=== PATIENT | female | born 1935 | race Caucasian/White ===

== ENCOUNTER 2020-12-28 11:47 | Inpatient (IN) | payer MEDICARE ==
[~2020-12-28] VITALS: Ht 152.4 cm; Wt 72.0 kg
[2020-12-28 12:50] LABS: BASO % 1 % (0-3); EOS % 0 % (0-3); HEMATOCRIT 35.9 % (36.0-47.0); HEMOGLOBIN 11.8 g/dL (12.0-15.5); LYMPH # 0.9 x10^3/uL (1.0-4.8); LYMPH % 14 % (24-48); MEAN CORPUSCULAR HEMOGLOBIN 31 pg (25-35); MEAN CORPUSCULAR HGB CONC 33 g/dL (31-37); MEAN CORPUSCULAR VOLUME 92 fL (79-100); MONO # 0.5 x10^3/uL (0.0-1.1); MONO % 7 % (0-9); NEUT # 4.9 x10^3uL (1.8-7.7); NEUT % 78 % (31-73); PLATELET COUNT 236 x10^3/uL (140-400); RED BLOOD COUNT 3.89 x10^6/uL (3.50-5.40); RED CELL DISTRIBUTION WIDTH 13.4 % (11.5-14.5); WHITE BLOOD COUNT 6.3 x10^3/uL (4.0-11.0)
[2020-12-28 13:00] LABS: ANION GAP 10 (6-14); BLOOD UREA NITROGEN 30 mg/dL (7-20); BUN/CREATININE RATIO 25 (6-20); CALCIUM 9.2 mg/dL (8.5-10.1); CARBON DIOXIDE 25 mmol/L (21-32); CHLORIDE 107 mmol/L (98-107); CREATININE 1.2 mg/dL (0.6-1.0); GFR 42.8; GLUCOSE 175 mg/dL (70-99); POTASSIUM 4.6 mmol/L (3.5-5.1); SODIUM 142 mmol/L (136-145)
[2020-12-28 13:01] LABS: SALIC < 2.8 mg/dL (2.8-20.0)
[2020-12-28 13:02] LABS: ACETAMIN < 2.0 mcg/mL (10-30)
--- NOTE | 2020-12-28 13:04 | PHYS DOC ---
Past History Past Medical History: Anxiety, Arthritis, CHF, Depression, Diabetes, Hypothyroid Additional Past Medical Histor: nerve issues in legs adn lefet arm, TIA, flaccid hemiplegia of left side, Additional Past Surgical Histo: Colostomy Smoking: Non-smoker Alcohol Use: None Drug Use: None General Adult EDM: Chief Complaint: MEDICAL CLEARANCE HPI: HPI: Patient is a 85 year old female who presents for medical clearance prior to admission to the [facility] unit. The patient reports having a "mental breakdown" recently. Patient reports losing her recently and that her family has abandoned her. She feels lost, scared, and hopeless. Reports SI. Patient denies any discomfort or pain. Denies any other significant complaints at this time. Review of Systems: Review of Systems: Constitutional: Denies fever or chills Eyes: Denies redness or eye pain HENT: Denies nasal congestion or sore throat Respiratory: Denies cough or shortness of breath Cardiovascular: Denies chest pain or palpitations GI: Denies abdominal pain, nausea, or vomiting : Denies dysuria or hematuria Musculoskeletal: Denies back pain or joint pain Integument: Denies rash or skin lesions Neurologic: Denies headache, focal weakness or sensory changes Psych: Reports depressed mood and anxiety Complete systems were reviewed and found to be within normal limits, except as documented in this note. Allergies: Allergies: Allergies Coded Allergies Type Severity Reaction Last Updated Verified Penicillins Allergy Unknown 12/28/20 Yes Sulfa (Sulfonamide Antibiotics) Allergy Unknown 12/28/20 Yes zinc Allergy Unknown 12/28/20 Yes Physical Exam: PE: Constitutional: Well developed, well nourished, no acute distress, non-toxic appearance HENT: Normocephalic, atraumatic Eyes: PERRL, EOMI, conjunctiva normal, no discharge Neck: Normal range of motion, no tenderness, supple Lungs & Thorax: No respiratory distress, equal chest rise and fall Abdomen: Soft, no tenderness Skin: Warm, dry, no erythema, no rash Back: No tenderness, no CVA tenderness Extremities: No tenderness, ROM intact, no edema Neurologic: Alert and oriented X 3, normal motor function, normal sensory function, no focal deficits noted Psychologic: Affect anxious, judgment abnormal Current Patient Data: Labs: Laboratory Tests Test 12/28/20 12:29 White Blood Count 6.3 x10^3/uL (4.0-11.0) Red Blood Count 3.89 x10^6/uL (3.50-5.40) Hemoglobin 11.8 g/dL (12.0-15.5) L Hematocrit 35.9 % (36.0-47.0) L Mean Corpuscular Volume 92 fL (79-100) Mean Corpuscular Hemoglobin 31 pg (25-35) Mean Corpuscular Hemoglobin Concent 33 g/dL (31-37) Red Cell Distribution Width 13.4 % (11.5-14.5) Platelet Count 236 x10^3/uL (140-400) Neutrophils (%) (Auto) 78 % (31-73) H Lymphocytes (%) (Auto) 14 % (24-48) L Monocytes (%) (Auto) 7 % (0-9) Eosinophils (%) (Auto) 0 % (0-3) Basophils (%) (Auto) 1 % (0-3) Neutrophils # (Auto) 4.9 x10^3uL (1.8-7.7) Lymphocytes # (Auto) 0.9 x10^3/uL (1.0-4.8) L Monocytes # (Auto) 0.5 x10^3/uL (0.0-1.1) Eosinophils # (Auto) 0.0 x10^3/uL (0.0-0.7) Basophils # (Auto) 0.0 x10^3/uL (0.0-0.2) Vital Signs: Vital Signs Date Time Temp Pulse Resp B/P (MAP) Pulse Ox O2 Delivery O2 Flow Rate FiO2 12/28/20 12:01 98.4 77 16 143/77 97 Room Air EKG: EK12/28/20 @ 1341 sinus rhythm, 74 bpm, QRS 82 ms, TX 230 ms, QT/QTc 366/411 ms, no evidence of ischemia or ST changes, Radiology/Procedures: Radiology/Procedures: [] Heart Score: C/O Chest Pain: N/A Course & Med Decision Making: Course & Med Decision Making Pertinent Labs and Imaging studies reviewed. (See chart for details) Patient is an 85 year old female who presented for medical clearance prior to admission to the elderly behavioral unit. She reports depressed mood and SI. EKG normal. UA showed evidence of UTI. Dragon Disclaimer: Dragon Disclaimer: This electronic medical record was generated, in whole or in part, using a voice recognition dictation system. Departure Departure: Impression: Primary Impression: Medical clearance for psychiatric admission Additional Impression: Urinary tract infection Qualified Codes: N30.00 - Acute cystitis without hematuria Disposition: [address] [place] [address] ([facility]) Condition: STABLE Referrals: PCP,NO (PCP) Patient Instructions: Medical Screening Exam, Urinary Tract Infection, [id number] Scripts Cephalexin (CEPHALEXIN) 500 Mg Capsule 1 CAP PO TID for UTI for 7 Days, #21 CAP Prov: FAY ALFRED DO 12/28/20 FAY ALFRED DO Dec 28, 2020 13:04
[2020-12-28 13:17] LABS: ALBUMIN 3.4 g/dL (3.4-5.0); ALK PHOS 133 U/L (46-116); ALT (SGPT) 21 U/L (14-59); AST (SGOT) 15 U/L (15-37); TOTAL BILIRUBIN 0.2 mg/dL (0.2-1.0); TOTAL PROTEIN 6.9 g/dL (6.4-8.2)
[2020-12-28 13:52] LABS: BILIRUBIN,URINE NEG (NEG); CLARITY,URINE HAZY; COLOR,URINE YELLOW; GLUCOSE,URINE NEG (NEG); NITRITE,URINE POS (NEG); UROBILINOGEN,URINE 0.2 mg/dL (0.2 mg/dL)
[2020-12-28 13:55] LABS: BACTERIA,URINE FEW /HPF (0-FEW); RBC,URINE RARE /HPF (0-2); SQUAMOUS EPITHELIAL CELL,UR FEW /LPF; WBC,URINE >40 /HPF (0-4)
[2020-12-28] MEDS ORDERED: CEPHALEXIN 250 MG CAPSULE PO ONE (14:00)
[2020-12-28] MEDS ORDERED: CEPH500C PO (14:08)
[2020-12-28] MEDS ORDERED: ATOR10TA60 PO (15:29)
[2020-12-28] MEDS ORDERED: FAMO20TA5 PO (15:29)
[2020-12-28] MEDS ORDERED: OLME20TA17 PO (15:29)
[2020-12-28] MEDS ORDERED: LIDOCAINE 5% TOP (15:29)
[2020-12-28] MEDS ORDERED: BUPR150T21 PO (15:29)
[2020-12-28] MEDS ORDERED: DILT360T7 PO (15:29)
[2020-12-28] MEDS ORDERED: MAGN400T5 PO (15:29)
[2020-12-28] MEDS ORDERED: DOCU100C28 PO (15:29)
[2020-12-28] MEDS ORDERED: LEVO75TA5 PO (15:29)
[2020-12-28] MEDS ORDERED: MELA3TAB43 PO (15:29)
[2020-12-28] MEDS ORDERED: LEVE500T21 PO (15:29)
[2020-12-28] MEDS ORDERED: B2/V1TAB PO (15:29)
[2020-12-28] MEDS ORDERED: LIDOCAINE 4% TOP (15:29)
[2020-12-28] MEDS ORDERED: GUAI100L34 PO (15:29)
[2020-12-28] MEDS ORDERED: CETI10TA16 PO (15:29)
[2020-12-28] MEDS ORDERED: VENL75CA6 PO (15:30)
[2020-12-28] MEDS ORDERED: METF-658 PO (15:30)
[2020-12-28] MEDS ORDERED: KETO5DRO4 EACHEYE (15:30)
[2020-12-28] MEDS ORDERED: ACET325T9 PO (15:30)
[2020-12-28] MEDS ORDERED: TRIA15CR50 TP (15:30)
[2020-12-28] MEDS ORDERED: POLY2500 PO (15:30)
[2020-12-28] MEDS ORDERED: NYST15OI TP (15:30)
[2020-12-28] MEDS ORDERED: NYST15CR2 TP (15:30)
[2020-12-28] MEDS ORDERED: ALPR0.5T6 PO (15:30)
[2020-12-28] MEDS ORDERED: CYAN500T7 PO (15:30)
[2020-12-28] MEDS ORDERED: CHOL10004 PO (15:30)
[2020-12-28] MEDS ORDERED: CYAN-25 PO (15:30)
[2020-12-28] MEDS ORDERED: DICL20GE TP ×2 (15:30)
[2020-12-28] MEDS ORDERED: SIME80TA14 PO (15:30)
[2020-12-28] MEDS ORDERED: TRAM50TA PO (15:30)
[2020-12-28] MEDS ORDERED: PREG50CA PO (15:30)
--- NOTE | 2020-12-28 15:45 | NUR ---
Admission Note with Justification for Admission to [facility] Patient admitted to [facility] for protective oversight for emergency stabilization of acute psychiatric crisis. Pt admitted from: [facility] Mode of arrival: Secure Transport Accompanied By: [facility] Staff Precipitating behaviors that initiated intake and admission: pt reports she's having a break down, increased depression and anxiety, suicidal thoughts, fears being abandoned by her family Description of failure of out patient attempts at stabilization in previous setting list behavior and medication trials: bupropion, xanax PRN, out patient therapy, encouragement to get involved in activities Behaviors and assessment findings upon admission: Pt is cooperative with assessment, but is very frustrated/angry about having to "wait around in a room all day just to see the Dr. cast". Pt is demanding to go back to [employer]. At time of assessment, pt was A&O to self only. When it was explained to her where she was and the timeframe, pt was able to recall this information about 15 minutes later. Pt states she is depressed because her " in March and we're having some family issues right now". Pt denies having any SI. She denies having any pain. Skin is intact. Pt c/o not getting anything to eat all day in the ED. When offered a snack, pt refused. She was left in bed until supper. Will continue to monitor. Plan: Admit for protective oversight for adjustment and stabilization of medications, behaviors and mood. Intense treatment regimen including groups, medication adjustments, therapy, consistent regimen for ADL's, self care, and sleep hygiene. Daily monitoring by Inpatient staff, Psychiatry, and Medical Physician.
[2020-12-28] MEDS ORDERED: MAG HYDROX/AL HYDROX/SIMETH 30 ML ORAL.SUSP PO PRN (17:00)
[2020-12-28] MEDS ORDERED: METHYL SALICYLATE/MENTHOL TOPICAL OINTMENT 57GM TUBE. TP PRN (17:00)
[2020-12-28] MEDS ORDERED: ACETAMINOPHEN 325 MG TABLET PO PRN ×2 (17:00→17:30)
[2020-12-28] MEDS ORDERED: MAGNESIUM HYDROXIDE 2,400 MG/30 ML ORAL.SUSP. PO PRN (17:00)
[2020-12-28 17:30] VITALS: BP 109/65
[2020-12-28] MEDS ORDERED: guaiFENesin 300 MG/15 ML LIQUID PO PRN (17:30)
[2020-12-28] MEDS ORDERED: SIMETHICONE 80 MG TAB.CHEW PO PRN (17:30)
[2020-12-28] MEDS ORDERED: DICLOFENAC SODIUM 1% TOPICAL GEL 100GM TUBE. TP PRN (17:30)
[2020-12-28] MEDS ORDERED: NYSTATIN TOPICAL POWDER 15GM BOTTLE. TP PRN (20:00)
[2020-12-28] MEDS: PREGABALIN 25 MG CAPSULE PO SCH (20:53)
[2020-12-28] MEDS: levETIRAcetam 500 MG TABLET PO SCH (20:53)
[2020-12-28] MEDS: ALPRAZolam 0.5 MG TABLET PO SCH (20:53)
[2020-12-28] MEDS: CEPHALEXIN 250 MG CAPSULE PO SCH (20:54)
[2020-12-28] MEDS: MAGNESIUM OXIDE 400 MG TABLET PO SCH (20:54)
[2020-12-28] MEDS: buPROPion SR 100 MG TABLET.SA. PO SCH (20:54)
[2020-12-28] MEDS: KETOTIFEN FUMARATE 0.025% OPHT SOLUTION BOTTLE. OU SCH (20:57)
[2020-12-28] MEDS: NYSTATIN/TRIAMCIN TOPICAL CREAM 15GM TUBE. TP SCH (20:57)
[2020-12-28] MEDS: TRIAMCINOLONE ACETONIDE 0.5% TOPICAL CREAM 15GM TUBE. TP SCH (20:57)
[2020-12-28] MEDS ORDERED: ATORVASTATIN CALCIUM 10 MG TABLET. PO SCH (21:00)
[2020-12-28] MEDS ORDERED: DICLOFENAC SODIUM 1% TOPICAL GEL 100GM TUBE. TP SCH (21:00)
[2020-12-28] MEDS ORDERED: MELATONIN 3 MG TABLET PO SCH (21:00)
[2020-12-28] MEDS ORDERED: FAMOTIDINE 20 MG TABLET PO SCH (21:00)
[2020-12-28] MEDS ORDERED: LIDOCAINE 5% TOP SCH (21:00)
--- NOTE | 2020-12-28 21:55 | PDOC ---
Exam Note: Magdaleno Note: Please also refer to the separate dictated note~for this date of service dictated separately.~Patient seen individually. Discussed the patient with Nursing staff reviewed the chart.~Reviewed interim history and current functioning. Reviewed vital signs,~Labs/ Radiology~and current medications noted below. Continue current treatment with the changes noted in the dictated addendum note Assessment: Vital Signs/I&O: Vital Signs Date Time Temp Pulse Resp B/P (MAP) Pulse Ox O2 Delivery O2 Flow Rate FiO2 12/28/20 17:30 98.0 68 18 109/65 (80) 95 12/28/20 14:10 Room Air Labs: Laboratory Tests Test 12/28/20 12:29 12/28/20 13:31 White Blood Count 6.3 x10^3/uL (4.0-11.0) Red Blood Count 3.89 x10^6/uL (3.50-5.40) Hemoglobin 11.8 g/dL (12.0-15.5) L Hematocrit 35.9 % (36.0-47.0) L Mean Corpuscular Volume 92 fL (79-100) Mean Corpuscular Hemoglobin 31 pg (25-35) Mean Corpuscular Hemoglobin Concent 33 g/dL (31-37) Red Cell Distribution Width 13.4 % (11.5-14.5) Platelet Count 236 x10^3/uL (140-400) Neutrophils (%) (Auto) 78 % (31-73) H Lymphocytes (%) (Auto) 14 % (24-48) L Monocytes (%) (Auto) 7 % (0-9) Eosinophils (%) (Auto) 0 % (0-3) Basophils (%) (Auto) 1 % (0-3) Neutrophils # (Auto) 4.9 x10^3uL (1.8-7.7) Lymphocytes # (Auto) 0.9 x10^3/uL (1.0-4.8) L Monocytes # (Auto) 0.5 x10^3/uL (0.0-1.1) Eosinophils # (Auto) 0.0 x10^3/uL (0.0-0.7) Basophils # (Auto) 0.0 x10^3/uL (0.0-0.2) Sodium Level 142 mmol/L (136-145) Potassium Level 4.6 mmol/L (3.5-5.1) Chloride Level 107 mmol/L (98-107) Carbon Dioxide Level 25 mmol/L (21-32) Anion Gap 10 (6-14) Blood Urea Nitrogen 30 mg/dL (7-20) H Creatinine 1.2 mg/dL (0.6-1.0) H Estimated GFR (Cockcroft-Gault) 42.8 BUN/Creatinine Ratio 25 (6-20) H Glucose Level 175 mg/dL (70-99) H Calcium Level 9.2 mg/dL (8.5-10.1) Magnesium Level 2.0 mg/dL (1.8-2.4) Total Bilirubin 0.2 mg/dL (0.2-1.0) Aspartate Amino Transferase (AST) 15 U/L (15-37) Alanine Aminotransferase (ALT) 21 U/L (14-59) Alkaline Phosphatase 133 U/L (46-116) H Creatine Kinase 38 U/L (26-192) Creatine Kinase MB (Mass) < 0.5 ng/mL (0.0-3.6) Creatine Kinase MB Relative Index % (0-4) Troponin I Quantitative < 0.017 ng/mL (0-0.055) Total Protein 6.9 g/dL (6.4-8.2) Albumin 3.4 g/dL (3.4-5.0) Albumin/Globulin Ratio 1.0 (1.0-1.7) Salicylates Level < 2.8 mg/dL (2.8-20.0) L Salicylate Last Dose Date Unknown Salicylate Last Dose Time Unknown Acetaminophen Level < 2.0 mcg/mL (10-30) L Acetaminophen Last Dose Date Unknown Acetaminophen Last Dose Time Unknown Urine Collection Type Unknown Urine Color Yellow Urine Clarity Hazy Urine pH 6.0 Urine Specific [place] 1.020 Urine Protein Neg (NEG-TRACE) Urine Glucose (UA) Neg mg/dL (NEG) Urine Ketones (Stick) Neg mg/dL (NEG) Urine Blood Small (NEG) Urine Nitrite Pos (NEG) Urine Bilirubin Neg (NEG) Urine Urobilinogen Dipstick 0.2 mg/dL (0.2 mg/dL) Urine Leukocyte Esterase Small (NEG) Urine RBC Rare /HPF (0-2) Urine WBC >40 /HPF (0-4) Urine Squamous Epithelial Cells Few /LPF Urine Bacteria Few /HPF (0-FEW) Current Medications: Meds: Current Medications Medications (Trade) Dose Ordered Sig/Zamzam Route PRN Reason Start Time Stop Time Status Last Admin Dose Admin Cephalexin HCl (Keflex) 500 mg 1X ONCE PO 12/28/20 14:00 12/28/20 14:04 DC 12/28/20 14:08 Alprazolam (Xanax) 0.5 mg QID PO 12/28/20 21:00 12/28/20 20:53 Atorvastatin Calcium (Lipitor) 10 mg QHS PO 12/28/20 21:00 12/28/20 20:53 Bupropion HCl (Wellbutrin Sr) 100 mg BID PO 12/28/20 21:00 12/28/20 20:54 Famotidine (Pepcid) 20 mg HS PO 12/28/20 21:00 12/28/20 20:53 Magnesium Oxide (Magnesium Oxide) 400 mg BID PO 12/28/20 21:00 12/28/20 20:54 Pregabalin (Lyrica) 25 mg BID PO 12/28/20 21:00 12/28/20 20:53 Cephalexin HCl (Keflex) 250 mg TID PO 12/28/20 21:00 01/07/21 09:01 12/28/20 20:54 Levetiracetam (Keppra) 500 mg BID PO 12/28/20 21:00 12/28/20 20:53 Melatonin (Melatonin) 3 mg HS PO 12/28/20 21:00 12/28/20 20:53 I have reviewed the current psychotropics carefully including drug interactions. Risk benefit ratio favors no change other than as noted in my dictated progress note. Diagnosis: Problems: (1) Medical clearance for psychiatric admission CHELY WALTON MD Dec 28, 2020 21:55
--- NOTE | 2020-12-28 22:24 | HP ---
ADMIT DATE: 12/28/2020 PSYCHIATRIC ADMISSION HISTORY/EVALUATION This note covers the elements not covered in my initial note of 12/28/2020. IDENTIFYING DATA: The patient is an 85-year-old female referred from [facility] by her primary care physician on account of worsening symptoms of depression and patient stating she is having a breakdown. She is increasingly anxious, voicing suicidal thoughts and fears of being abandoned by her family. She has failed outpatient psychiatric interventions. Behavior is deemed dangerous, unmanageable resulting in this referral. CHIEF COMPLAINT: "I need to be discharged tomorrow. I thought I was just coming to have an outpatient appointment." HISTORY OF PRESENT ILLNESS: The patient has history of major depressive disorder and anxiety disorder. She lost her in the fall of 2019 and has been withdrawn, isolative, lost interest in various sorts and activities she was doing at the halfway. She has had some fleeting suicidal ideation. No active suicidal plans, intent, or attempt. No clear history of bipolar disorder. PAST PSYCHIATRIC HISTORY: As above. MEDICAL HISTORY: Hypothyroidism, diabetes mellitus, hyperlipidemia, status post TIA, congestive heart failure, osteoarthritis, lichen planus, hemiplegia left side and chronic vaginal itching. CODE STATUS: Full code. ACCU-CHEKS: Daily. DIET: Regular. She ambulates in a wheelchair and Roberta, unable to move left side. UA culture is pending. Started on Keflex. FAMILY HISTORY: Noncontributory. SOCIAL HISTORY: No history of alcohol, drug abuse, physical, sexual or elder abuse. She is not known to be a perpetrator. REACTION TO HOSPITALIZATION: The patient accepting of it, but wants to be discharged. ASSETS: Reasonably cognitively intact. Supportive family. Stable living at the halfway. REVIEW OF SYSTEMS: Positive for the left-sided weakness, impaired ambulation. No CV, , pulmonary, eye system symptoms on review. MENTAL STATUS EXAM: The patient was seen individually at length evening of 12/28/2020. She is oriented to herself, situation. Speech is coherent, has some latency. Abstraction fair. Computation impaired. She does have short-term memory deficits. Attention span short. No active suicidal or homicidal ideation. 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 IMPRESSION: Major depressive disorder, recurrent. Mild cognitive impairment. Anxiety disorder, unspecified. Rest unchanged from above. PLAN: Admit to Geropsychiatry Unit at [facility]. I will see the patient daily individually from a psychiatric standpoint. Medical followup with Dr. Manzanares/Dr. Cheek. Continue current psychotropics. Observe baseline, adjust as clinically indicated. ESTIMATED LENGTH OF STAY: 10-12 days. DISPOSITION PLANS: Back to halfway when stable. NICKIE DR: Tyler TID: [id number]
--- NOTE | 2020-12-28 23:38 | NUR ---
Pt located in her room this evening laying in bed. A/O x3. Confused as to situation. Pt states that she is supposed to be at [facility] and that Chyna (RAI) doesn't like her so she sent her here. Pt states that Chyna is going to get in alot of trouble for this and that she's a "dip." Pt denies SI; however states that she is depressed. Her of 68yrs last March. Pt states that staff at [facility] does not allow her to grieve/cry so she has to hold it in. Pt compliant with whole medications. No yelling or agitation this evening.
--- NOTE | 2020-12-29 00:19 | EKG ---
[address] [address] Test Date: 2020-12-28 Test Time: 13:41:37 Pat Name: MARISSA OROPEZA Department: Room: Gender: F Manager Language: SOBIA : 1935 Requested By: FAY ALFRED Order Number: [id number] Reading MD: Measurements Intervals [place] Rate: 74 P: 41 ND: 230 QRS: -18 QRSD: 82 T: 148 QT: 366 QTc: 411 Interpretive Statements SINUS RHYTHM PROLONGED ND INTERVAL LEFTWARD AXIS QRS(T) CONTOUR ABNORMALITY CONSIDER ANTEROSEPTAL MYOCARDIAL DAMAGE T ABNORMALITY IN HIGH LATERAL LEADS ABNORMAL ECG RI6.02 No previous ECG available for comparison
[2020-12-29 04:59] VITALS: BP 127/75
[2020-12-29 06:31] LABS: BASO # 0.1 x10^3/uL (0.0-0.2); BASO % 1 % (0-3); EOS % 0 % (0-3); HEMATOCRIT 35.3 % (36.0-47.0); HEMOGLOBIN 11.7 g/dL (12.0-15.5); LYMPH # 0.7 x10^3/uL (1.0-4.8); LYMPH % 10 % (24-48); MEAN CORPUSCULAR HEMOGLOBIN 31 pg (25-35); MEAN CORPUSCULAR HGB CONC 33 g/dL (31-37); MEAN CORPUSCULAR VOLUME 93 fL (79-100); MONO # 0.4 x10^3/uL (0.0-1.1); MONO % 6 % (0-9); NEUT % 83 % (31-73); PLATELET COUNT 239 x10^3/uL (140-400); RED BLOOD COUNT 3.82 x10^6/uL (3.50-5.40); RED CELL DISTRIBUTION WIDTH 13.2 % (11.5-14.5); WHITE BLOOD COUNT 7.2 x10^3/uL (4.0-11.0)
[2020-12-29 06:50] LABS: ALBUMIN 3.5 g/dL (3.4-5.0); CALCIUM 9.3 mg/dL (8.5-10.1); CREATININE 0.9 mg/dL (0.6-1.0); GFR 59.7; POTASSIUM 4.2 mmol/L (3.5-5.1); TOTAL BILIRUBIN 0.3 mg/dL (0.2-1.0)
[2020-12-29] MEDS ORDERED: metFORMIN XR 500 MG TAB.ER.24H PO SCH (08:00)
[2020-12-29] MEDS ORDERED: CYANOCOBALAMIN 500 MCG PO SCH (09:00)
[2020-12-29] MEDS ORDERED: POLYETHYLENE GLYCOL 3350 17 GM PACKET. PO SCH (09:00)
[2020-12-29] MEDS: KETOTIFEN FUMARATE 0.025% OPHT SOLUTION BOTTLE. OU SCH ×2 (09:31→09:40)
[2020-12-29] MEDS: PREGABALIN 25 MG CAPSULE PO SCH ×2 (09:31→09:40)
[2020-12-29] MEDS: MAGNESIUM OXIDE 400 MG TABLET PO SCH ×2 (09:32→09:40)
[2020-12-29] MEDS: DOCUSATE SODIUM 100 MG CAPSULE PO SCH ×2 (09:33→09:40)
[2020-12-29] MEDS: CEPHALEXIN 250 MG CAPSULE PO SCH ×2 (09:34→09:40)
[2020-12-29] MEDS: LOSARTAN 50 MG TABLET. PO SCH ×2 (09:34→09:40)
[2020-12-29] MEDS: buPROPion SR 100 MG TABLET.SA. PO SCH ×2 (09:34→09:40)
[2020-12-29] MEDS: CYANOCOBALAMIN (VITAMIN B-12) 1,000 MCG TABLET. PO SCH ×2 (09:35→09:40)
[2020-12-29] MEDS: MULTIVITAMIN I-VITE TABLET. PO SCH ×2 (09:35→09:40)
[2020-12-29] MEDS: CHOLECALCIFEROL (VITAMIN D3) 1,000 UNIT TABLET PO SCH ×2 (09:35→09:40)
[2020-12-29] MEDS: VENLAFAXINE XR 37.5 MG CAP.ER.24H. PO SCH ×2 (09:35→09:40)
[2020-12-29] MEDS: ALPRAZolam 0.5 MG TABLET PO SCH (09:35)
[2020-12-29] MEDS: CETIRIZINE HCL 10 MG TABLET PO SCH ×2 (09:36→09:40)
[2020-12-29] MEDS: TRIAMCINOLONE ACETONIDE 0.5% TOPICAL CREAM 15GM TUBE. TP SCH ×2 (09:36→09:40)
[2020-12-29] MEDS: levETIRAcetam 500 MG TABLET PO SCH ×2 (09:36→09:40)
[2020-12-29] MEDS: LEVOTHYROXINE 75 MCG TABLET PO SCH ×2 (09:36→09:40)
[2020-12-29] MEDS: NYSTATIN/TRIAMCIN TOPICAL CREAM 15GM TUBE. TP SCH ×2 (09:36→09:40)
[2020-12-29] MEDS: traMADol 50 MG TABLET PO SCH ×2 (09:36→09:40)
[2020-12-29] MEDS: LIDOCAINE (700MG/PATCH) PATCH. TD SCH ×2 (09:37→09:40)
[2020-12-29 09:40] VITALS: BP 127/75
--- NOTE | 2020-12-29 10:25 | NUR ---
Patient has been frequently demanding to call her facility, stating she wants to leave. Patient provided with phone, facility is working on transportation. Patient is adamant that she leave immediately. Patient is refusing all morning medications except Xanax. paged, patient will be discharged AMA when transportation can be arranged.
--- NOTE | 2020-12-29 13:30 | NUR ---
Patient left against medical advice, stating she was tricked into coming here. Transition Record was faxed to [facility] with the following elements: Reason for admission, principal diagnosis, pending studies, patient instructions, 01/01 contact information for unit, phone number to obtain pending test results, advanced directive information, and medication list with dose, duration and instructions. Date & time record faxed: 13:14 29 December 2020 Record discussed with/ report given to: LUIS E Nguyen at [facility]
[2020-12-29 14:54] LABS: THYROID STIM HORMONE (TSH) 1.614 uIU/mL (0.358-3.740)
[2020-12-29 20:23] LABS: THYROXINE 9.1 ug/dL (4.5-12.0)
--- NOTE | 2020-12-29 22:39 | PDOC ---
Exam Note: Magdaleno Note: Please also refer to the separate dictated note~for this date of service dictated separately.~Patient seen individually. Discussed the patient with Nursing staff reviewed the chart.~Reviewed interim history and current functioning. Reviewed vital signs,~Labs/ Radiology~and current medications noted below. Continue current treatment with the changes noted in the dictated addendum note Assessment: Vital Signs/I&O: Vital Signs Date Time Temp Pulse Resp B/P (MAP) Pulse Ox O2 Delivery O2 Flow Rate FiO2 12/29/20 09:40 68 127/75 12/29/20 09:40 16 97 Room Air 12/29/20 04:59 97.8 I & O 12/28/20 12/28/20 12/29/20 15:00 23:00 07:00 Intake Total 360 ml Balance 360 ml Labs: Laboratory Tests Test 12/29/20 06:18 12/29/20 07:33 White Blood Count 7.2 x10^3/uL (4.0-11.0) Red Blood Count 3.82 x10^6/uL (3.50-5.40) Hemoglobin 11.7 g/dL (12.0-15.5) L Hematocrit 35.3 % (36.0-47.0) L Mean Corpuscular Volume 93 fL (79-100) Mean Corpuscular Hemoglobin 31 pg (25-35) Mean Corpuscular Hemoglobin Concent 33 g/dL (31-37) Red Cell Distribution Width 13.2 % (11.5-14.5) Platelet Count 239 x10^3/uL (140-400) Neutrophils (%) (Auto) 83 % (31-73) H Lymphocytes (%) (Auto) 10 % (24-48) L Monocytes (%) (Auto) 6 % (0-9) Eosinophils (%) (Auto) 0 % (0-3) Basophils (%) (Auto) 1 % (0-3) Neutrophils # (Auto) 6.0 x10^3uL (1.8-7.7) Lymphocytes # (Auto) 0.7 x10^3/uL (1.0-4.8) L Monocytes # (Auto) 0.4 x10^3/uL (0.0-1.1) Eosinophils # (Auto) 0.0 x10^3/uL (0.0-0.7) Basophils # (Auto) 0.1 x10^3/uL (0.0-0.2) D-Dimer (Chantel) 0.77 mg/L (0.00-0.50) H Sodium Level 143 mmol/L (136-145) Potassium Level 4.2 mmol/L (3.5-5.1) Chloride Level 105 mmol/L (98-107) Carbon Dioxide Level 25 mmol/L (21-32) Anion Gap 13 (6-14) Blood Urea Nitrogen 24 mg/dL (7-20) H Creatinine 0.9 mg/dL (0.6-1.0) Estimated GFR (Cockcroft-Gault) 59.7 BUN/Creatinine Ratio 27 (6-20) H Glucose Level 138 mg/dL (70-99) H Calcium Level 9.3 mg/dL (8.5-10.1) Iron Level 70 ug/dL (50-170) Total Iron Binding Capacity 299 ug/dL (250-450) Iron Saturation 23 % (15-34) Total Bilirubin 0.3 mg/dL (0.2-1.0) Aspartate Amino Transferase (AST) 12 U/L (15-37) L Alanine Aminotransferase (ALT) 19 U/L (14-59) Alkaline Phosphatase 124 U/L (46-116) H Total Protein 7.0 g/dL (6.4-8.2) Albumin 3.5 g/dL (3.4-5.0) Albumin/Globulin Ratio 1.0 (1.0-1.7) Triglycerides Level 155 mg/dL (0-150) H Cholesterol Level 188 mg/dL (0-200) LDL Cholesterol, Calculated 108 mg/dL (0-100) H VLDL Cholesterol, Calculated 31 mg/dL (0-40) Non-HDL Cholesterol Calculated 139 mg/dL (0-129) H HDL Cholesterol 49 mg/dL (40-60) Cholesterol/HDL Ratio 3.0 Vitamin B12 Level > 2000 pg/mL (247-911) H 25-Hydroxy Vitamin D Total 49.5 ng/mL (30-100) Thyroid Stimulating Hormone (TSH) 1.614 uIU/mL (0.358-3.740) Thyroxine (T4) 9.1 ug/dL (4.5-12.0) Total Triiodothyronine (TT3) 63 ng/dL (71-180) L Treponema pallidum Antibody Nonreactive (Nonreactive) Glucose (Fingerstick) 138 mg/dL (70-99) H Current Medications: Meds: Laboratory Tests Test 12/29/20 06:18 12/29/20 07:33 White Blood Count 7.2 x10^3/uL Red Blood Count 3.82 x10^6/uL Hemoglobin 11.7 g/dL Hematocrit 35.3 % Mean Corpuscular Volume 93 fL Mean Corpuscular Hemoglobin 31 pg Mean Corpuscular Hemoglobin Concent 33 g/dL Red Cell Distribution Width 13.2 % Platelet Count 239 x10^3/uL Neutrophils (%) (Auto) 83 % Lymphocytes (%) (Auto) 10 % Monocytes (%) (Auto) 6 % Eosinophils (%) (Auto) 0 % Basophils (%) (Auto) 1 % Neutrophils # (Auto) 6.0 x10^3uL Lymphocytes # (Auto) 0.7 x10^3/uL Monocytes # (Auto) 0.4 x10^3/uL Eosinophils # (Auto) 0.0 x10^3/uL Basophils # (Auto) 0.1 x10^3/uL D-Dimer (Chantel) 0.77 mg/L Sodium Level 143 mmol/L Potassium Level 4.2 mmol/L Chloride Level 105 mmol/L Carbon Dioxide Level 25 mmol/L Anion Gap 13 Blood Urea Nitrogen 24 mg/dL Creatinine 0.9 mg/dL Estimated GFR (Cockcroft-Gault) 59.7 BUN/Creatinine Ratio 27 Glucose Level 138 mg/dL Calcium Level 9.3 mg/dL Iron Level 70 ug/dL Total Iron Binding Capacity 299 ug/dL Iron Saturation 23 % Total Bilirubin 0.3 mg/dL Aspartate Amino Transf (AST/SGOT) 12 U/L Alanine Aminotransferase (ALT/SGPT) 19 U/L Alkaline Phosphatase 124 U/L Total Protein 7.0 g/dL Albumin 3.5 g/dL Albumin/Globulin Ratio 1.0 Triglycerides Level 155 mg/dL Cholesterol Level 188 mg/dL LDL Cholesterol, Calculated 108 mg/dL VLDL Cholesterol, Calculated 31 mg/dL Non-HDL Cholesterol Calculated 139 mg/dL HDL Cholesterol 49 mg/dL Cholesterol/HDL Ratio 3.0 Vitamin B12 Level > 2000 pg/mL 25-Hydroxy Vitamin D Total 49.5 ng/mL Thyroid Stimulating Hormone (TSH) 1.614 uIU/mL Thyroxine (T4) 9.1 ug/dL Total Triiodothyronine 63 ng/dL Treponema pallidum Antibody Nonreactive Glucose (Fingerstick) 138 mg/dL Current Medications Medications (Trade) Dose Ordered Sig/Zamzam Route PRN Reason Start Time Stop Time Status Last Admin Dose Admin Cephalexin HCl (Keflex) 500 mg 1X ONCE PO 12/28/20 14:00 12/28/20 14:04 DC 12/28/20 14:08 Acetaminophen (Tylenol) 650 mg PRN Q6HRS PRN PO MILD PAIN / TEMP > 100.3'F 12/28/20 17:00 12/29/20 13:35 DC Multi-Ingredient Ointment (Analgesic [place]) 1 nurys PRN QID PRN TP MUSCLE PAIN 12/28/20 17:00 12/29/20 13:35 DC Al Hydroxide/Mg Hydroxide (Mylanta Plus Xs) 15 ml PRN AFTMEALHC PRN PO DYSPEPSIA 12/28/20 17:00 12/29/20 13:35 DC Magnesium Hydroxide (Milk Of Magnesia) 2,400 mg PRN QHS PRN PO CONSTIPATION 12/28/20 17:00 12/29/20 13:35 DC Acetaminophen (Tylenol) 650 mg PRN Q6HRS PRN PO PAIN 12/28/20 17:30 UNV Alprazolam (Xanax) 0.5 mg QID PO 12/28/20 21:00 12/29/20 13:35 DC 12/29/20 09:35 Atorvastatin Calcium (Lipitor) 10 mg QHS PO 12/28/20 21:00 12/29/20 13:35 DC 12/28/20 20:53 Bupropion HCl (Wellbutrin Sr) 100 mg BID PO 12/28/20 21:00 12/29/20 13:35 DC 12/28/20 20:54 Cetirizine HCl (ZyrTEC) 10 mg DAILY PO 12/29/20 09:00 12/29/20 13:35 DC Vitamin D (Vitamin D3) 2,000 unit DAILY PO 12/29/20 09:00 12/29/20 13:35 DC Cyanocobalamin (Vitamin B-12) 1,500 mcg DAILY PO 12/29/20 09:00 12/29/20 13:35 DC Diclofenac Sodium (Voltaren) 1 nurys HS TP 12/28/20 21:00 12/29/20 13:35 DC Diclofenac Sodium (Voltaren) 1 nurys PRN Q8HRS PRN TP R shoulder pain 12/28/20 17:30 12/29/20 13:35 DC Docusate Sodium (Colace) 200 mg DAILY PO 12/29/20 09:00 12/29/20 13:35 DC Famotidine (Pepcid) 20 mg HS PO 12/28/20 21:00 12/29/20 13:35 DC 12/28/20 20:53 Guaifenesin (Robitussin) 200 mg PRN Q4HRS PRN PO COUGH 12/28/20 17:30 12/29/20 13:35 DC Ketotifen Fumarate (Zaditor) 1 drop BID OU 12/28/20 21:00 12/29/20 13:35 DC Levothyroxine Sodium (Synthroid) 75 mcg DAILYAC PO 12/29/20 07:30 12/29/20 13:35 DC Magnesium Oxide (Magnesium Oxide) 400 mg BID PO 12/28/20 21:00 12/29/20 13:35 DC 12/29/20 09:40 Metformin HCl (Glucophage Xr) 1,000 mg DAILYWBKFT PO 12/29/20 08:00 12/29/20 13:35 DC Nystatin (Nystop) 1 nurys PRN Q8HRS PRN TP itching 12/28/20 20:00 12/29/20 13:35 DC Nystatin/ Triamcinolone Acetonide (Mycolog Ii) 1 nurys BID TP 12/28/20 21:00 12/29/20 13:35 DC Pregabalin (Lyrica) 25 mg BID PO 12/28/20 21:00 12/29/20 13:35 DC 12/28/20 20:53 Simethicone (Gas-X) 80 mg PRN Q6HRS PRN PO ABDOMINAL CRAMPS 12/28/20 17:30 12/29/20 13:35 DC Tramadol HCl (Ultram) 50 mg DAILY PO 12/29/20 09:00 12/29/20 13:35 DC Triamcinolone Acetonide (Kenalog 0.5%) 1 nurys 0900,2100 TP 12/28/20 21:00 12/29/20 13:35 DC Multivitamins/ Minerals (I-North) 1 tab DAILY PO 12/29/20 09:00 12/29/20 13:35 DC Cephalexin HCl (Keflex) 250 mg TID PO 12/28/20 21:00 12/29/20 13:35 DC 12/28/20 20:54 Non-Formulary Medication (Cyanocobalamin (Vitamin B-12) (Vitamin B-12)) 500 mcg DAILY PO 12/29/20 09:00 UNV Diltiazem HCl (Cardizem 24hr Cd) 360 mg DAILY PO 12/29/20 09:00 12/29/20 13:35 DC Levetiracetam (Keppra) 500 mg BID PO 12/28/20 21:00 12/29/20 13:35 DC 12/28/20 20:53 Melatonin (Melatonin) 3 mg HS PO 12/28/20 21:00 12/29/20 13:35 DC 12/28/20 20:53 Losartan Potassium (Cozaar) 100 mg DAILY PO 12/29/20 09:00 12/29/20 13:35 DC Polyethylene Glycol (miraLAX) 17 gm DAILY PO 12/29/20 09:00 12/29/20 13:35 DC 12/29/20 09:40 Venlafaxine HCl (Effexor Xr) 150 mg DAILY PO 12/29/20 09:00 12/29/20 13:35 DC Non-Formulary Medication ([Lidocaine 5% Cream] ) 1 nurys TID TOP 12/28/20 21:00 UNV Lidocaine (Lidoderm) 1 patch DAILY TD 12/29/20 09:00 12/29/20 13:35 DC Current Medications Medications (Trade) Dose Ordered Sig/Zamzam Route PRN Reason Start Time Stop Time Status Last Admin Dose Admin Polyethylene Glycol (miraLAX) 17 gm DAILY PO 12/29/20 09:00 12/29/20 13:35 DC 12/29/20 09:40 I have reviewed the current psychotropics carefully including drug interactions. Risk benefit ratio favors no change other than as noted in my dictated progress note. Diagnosis: Problems: (1) Major depressive disorder, recurrent episode (2) Mild cognitive impairment (3) Anxiety disorder, unspecified ANTON,MAN M MD Dec 29, 2020 22:39
[2020-12-30 00:07] LABS: HEMOGLOBIN A1C 7.9 % (4.8-5.6)
--- NOTE | 2020-12-30 22:21 | DS ---
DATE OF DISCHARGE: 12/29/2020 DISCHARGE SUMMARY/PSYCHIATRIC PROGRESS NOTE This is a late entry, date of service, 12/29. It covers elements not covered in my initial note, 12/29. REASON FOR ADMISSION: Please refer to the admission history for details. Briefly, the patient is an 85-year-old female, referred to us from [facility] by her primary care physician on account of "having a breakdown." The patient was increasingly depressed, anxious, having suicidal thoughts, fearing that she was being abandoned by her family. Behaviors were deemed dangerous, unmanageable. With the risk of suicide expressed by the patient, having failed outpatient psychiatric intervention, she was referred for inpatient psychiatric stabilization. SIGNIFICANT FINDINGS AND CLINICAL COURSE: Following admission, the patient was seen daily individually by myself during her very brief stay, medically followed by Dr. Manzanares/Dr. Cheek. Shortly after admission, the patient was insistent on being discharged, adamant, repetitive, anxious. I met with her on 12/30, addressed this with limited insight. She appeared depressed, withdrawn, but denied active suicidal ideation. On 12/29, she continued to want to be discharged even if it was against medical advice. She denied active suicidal ideation and was [facility] against medical advice [facility]. Prior to discharge, ambulation impaired. REVIEW OF SYSTEMS: No CV, , pulmonary, eye, ENT system symptoms on review. MENTAL STATUS EXAMINATION: The patient is reasonably oriented. Speech is coherent. Abstraction fair. Computation impaired. Language function intact. Mood and affect depressed, but denied suicidal ideation. CONDITION AT DISCHARGE: Improved. FINAL DIAGNOSES: Major depressive disorder, recurrent, severe; anxiety disorder, unspecified. Rest diagnoses unchanged from admission. DISCHARGE MEDICATIONS: We would not prescribe since she was discharged against medical advice. Time for discharge day management greater than [address]: Tyler TID: [id number]
== END 2020-12-29 12:00 | disposition left against medical advice (07) | DRG 885 ==
LOC: ER 11:47 → GEROPSY 16:00
PROVIDERS: ADMIT Psychiatry & Neurology Psychiatry; ATTEND Psychiatry & Neurology Psychiatry
DX: F33.9 Major depressive disorder, recurrent, unspecified (principal); R45.851 Suicidal ideations; F41.9 Anxiety disorder, unspecified; E78.5 Hyperlipidemia, unspecified; M19.90 Unspecified osteoarthritis, unspecified site; G31.84 Mild cognitive impairment of uncertain or unknown etiology; E11.9 Type 2 diabetes mellitus without complications; E03.9 Hypothyroidism, unspecified; I50.9 Heart failure, unspecified; Z86.73 Personal history of transient ischemic attack (TIA), and cerebral infarction without residual deficits; Z53.29 Procedure and treatment not carried out because of patient's decision for other reasons
CPT/HCPCS: 36415; 80053; 80061; 80329; 81001; 82306; 82553; 82607; 82947; 83036; 83540; 83550; 83735; 84436; 84443; 84480; 84484; 85025; 85379; 86592; 87086; 93005; 99285-25; G0480